=== PATIENT | female | born 2000 | race Caucasian/White ===

== ENCOUNTER 2020-06-15 17:18 | Emergency (ER) | payer OTHER ==
--- NOTE | 2020-06-15 17:36 | ERPHSYRPT ---
- History of Present Illness Time Seen by Provider: 06/15/20 17:36 Source: patient Exam Limitations: no limitations Physician History: This is a 19-year-old white female who is approximately 9 weeks who had an ultrasound approximately 2 weeks ago and was found to have a gestational sac but no obvious fetus at that point. There was a tiny area of subchorionic hemorrhage. At that point she was 6 weeks and 6 days along. Patient had hemorrhage approximately the degree of a normal menstrual period for her 2 days ago. Today, she was having significant amount of suprapubic cramping followed by a large amount of blood loss and appearance of a small fetus in blood and blood clots that she passed. Timing/Duration: today Activites at Onset: none Quality: aching Onset Location: suprapubic Severity of Pain-Max: moderate Severity of Pain-Current: moderate Sexual intercourse history: non-contributory Associated Symptoms: other (Vaginal bleeding and passage of what appears to be a fetus) Allergies/Adverse Reactions: Penicillins Allergy (Verified 06/15/20 17:37) Travel Risk - International Travel Have you traveled outside of the country in past 3 weeks: No - Coronavirus Screening Are you exhibiting any of the following symptoms?: No Close contact with a COVID-19 positive Pt in past 14-21 Days: No - Review of Systems Constitutional: No Symptoms Eyes: No Symptoms Ears, Nose, & Throat: No Symptoms Respiratory: No Symptoms Cardiac: No Symptoms Abdominal/Gastrointestinal: Abdominal Pain (Supra pubic) Genitourinary Symptoms: No Symptoms Musculoskeletal: No Symptoms Skin: No Symptoms Neurological: No Symptoms Psychological: No Symptoms Endocrine: No Symptoms Hematologic/Lymphatic: No Symptoms Immunological/Allergic: No Symptoms All Other Systems: Reviewed and Negative - Past Medical History Pertinent Past Medical History: No Neurological History: No Pertinent History ENT History: No Pertinent History Cardiac History: No Pertinent History Respiratory History: No Pertinent History Endocrine Medical History: No Pertinent History Musculoskeletal History: No Pertinent History GI Medical History: No Pertinent History History: No Pertinent History Psycho-Social History: No Pertinent History Female Reproductive Disorders: No Pertinent History - Past Surgical History Past Surgical History: No Neuro Surgical History: No Pertinent History Cardiac: No Pertinent History Respiratory: No Pertinent History Gastrointestinal: No Pertinent History Genitourinary: No Pertinent History Musculoskeletal: No Pertinent History Female Surgical History: No Pertinent History - Nursing Vital Signs Nursing Vital Signs: Initial Vital Signs Pulse Rate 95 H 12/11/20 17:38 Respiratory Rate 18 06/15/20 17:38 Blood Pressure 114/108 06/15/20 17:38 O2 Sat by Pulse Oximetry 98 06/15/20 17:38 Pain Scale Pain Intensity 8 - Physical Exam General Appearance: mild distress, alert, anxiety, other (Tearful) Eye Exam: PERRL/EOMI, eyes nml inspection Ears, Nose, Throat Exam: normal ENT inspection, moist mucous membranes Neck Exam: normal inspection, non-tender, supple, full range of motion Respiratory Exam: normal breath sounds, lungs clear, airway intact, No chest tenderness, No respiratory distress Cardiovascular Exam: regular rate/rhythm, normal heart sounds, normal peripheral pulses Gastrointestinal/Abdomen Exam: soft, normal bowel sounds, tenderness (Suprapubic), No guarding, No rebound Pelvic Exam: not done Rectal Exam: not done Back Exam: normal inspection, normal range of motion, No CVA tenderness, No vert ebral tenderness Extremity Exam: normal inspection, normal range of motion, pelvis stable Neurologic Exam: alert, oriented x 3, cooperative, identity access management architect II-XII nml as tested, normal mood/affect, nml cerebellar function, nml station & gait, sensation nml Skin Exam: normal color, warm, dry Lymphatic Exam: No adenopathy SpO2 Interpretation: normal O2 Delivery: Room Air - Course Nursing assessment & vital signs reviewed: Yes Ordered Tests: Active Orders 24 hr Category Date Time Status IV Insertion STAT Care 06/15/20 17:38 Active OB FOLLOW UP PER FETUS [US] Stat Exams 06/15/20 17:36 Taken CBC W DIFF Stat Lab 06/15/20 17:54 Completed CMP Stat Lab 06/15/20 17:54 Completed Medication Summary Generic Name Dose Route Start Last Admin Trade Name Freq PRN Reason Stop Dose Admin Sodium Chloride 1,000 mls @ 999 mls/hr 06/15/20 17:38 06/15/20 17:49 Sodium Chloride 0.9% 1000 Ml IV 06/15/20 18:38 999 mls/hr .Q1H1M STA Administration Discontinued Medications Generic Name Dose Route Start Last Admin Trade Name Freq PRN Reason Stop Dose Admin Hydromorphone HCl 1 mg 06/15/20 17:45 06/15/20 17:49 Hydromorphone 1 Mg/Ml Injection IV 06/15/20 17:46 1 mg STAT ONE Administration Hydromorphone HCl Confirm 06/15/20 17:47 Hydromorphone 1 Mg/Ml Injection Administered 06/15/20 17:48 Dose 1 mg .ROUTE .STK-MED ONE Sodium Chloride Confirm 06/15/20 17:47 Sodium Chloride 0.9% 1000 Ml Administered 06/15/20 17:48 Dose 1,000 mls @ ud .ROUTE .STK-MED ONE Ondansetron HCl 4 mg 06/15/20 17:45 06/15/20 17:49 Zofran 4 Mg/2 Ml Vial IV 06/15/20 17:46 4 mg STAT ONE Administration Ondansetron HCl Confirm 06/15/20 17:47 Zofran 4 Mg/2 Ml Vial Administered 06/15/20 17:48 Dose 4 mg .ROUTE .STK-MED ONE Lab/Rad Data: Laboratory Result Diagrams 06/15/20 17:54 06/15/20 17:54 Laboratory Results 06/15/20 06/15/20 Range/Units 17:54 17:54 WBC 13.5 H (4.0-10.5) K/mm3 RBC 4.52 (4.1-5.4) M/mm3 Hgb 13.0 (12.0-16.0) gm/dl Hct 39.6 (35-47) % MCV 87.6 (78-100) fl MCH 28.8 (26-32) pg MCHC 32.8 (32-36) g/dl RDW 13.4 (11.5-14.0) % Plt Count 211 (150-450) K/mm3 MPV 12.2 H (7.5-11.0) fl Gran % 57.8 (36.0-66.0) % Eos # (Auto) 0.52 H (0-0.5) Absolute Lymphs (auto) 4.18 (1.0-4.6) Absolute Monos (auto) 0.98 (0.0-1.3) Lymphocytes % 30.9 (24.0-44.0) % Monocytes % 7.2 (0.0-12.0) % Eosinophils % 3.8 (0.00-5.0) % Basophils % 0.3 (0.0-0.4) % Absolute Granulocytes 7.82 H (1.4-6.9) Basophils # 0.04 (0-0.4) Sodium 137 (137-145) mmol/L Potassium 4.3 (3.5-5.1) mmol/L Chloride 105 (98-107) mmol/L Carbon Dioxide 26 (22-30) mmol/L Anion Gap 10.8 (5-15) MEQ/L BUN 12 (7-17) mg/dL Creatinine 0.70 (0.52-1.04) mg/dL Estimated GFR > 60.0 ML/MIN Glucose 99 (74-106) mg/dL Calcium 9.3 (8.4-10.2) mg/dL Total Bilirubin 1.10 (0.2-1.3) mg/dL AST 25 (14-36) U/L ALT 22 (0-35) U/L Alkaline Phosphatase 50 (38-126) U/L Serum Total Protein 7.1 (6.3-8.2) g/dL Albumin 4.3 (3.5-5.0) g/dL - Progress Progress: improved, re-examined Air Movement: good Progress Note: 06/15/20 18:24 entry level lab technician stated that there is no fetus and no gestational sac present. There is a mild amount of retained debris. Blood Culture(s) Obtained: No Antibiotics given: No Counseled pt/family regarding: lab results, diagnosis, need for follow-up, rad results - Departure Departure Disposition: Home Clinical Impression: Spontaneous miscarriage Condition: Stable Critical Care Time: No Referrals: DAQUAN CASTILLO MD [Primary Care Provider] - Additional Instructions: Drink plenty fluids. Take medication as prescribed. Follow-up with Dr. Chamberlain on Thursday. Call for an appointment. If symptoms worsen over the weekend return to the emergency department. Prescriptions: Hydrocodone/APAP 5-325 Tab^^^ [[place] 5-325 Tablet^^^] 1 tab PO Q6HPRN PRN #10 tablet MDD 6 PRN Reason: Pain Ondansetron ODT 4 MG [Zofran Odt 4 mg] 4 mg PO Q6H PRN PRN #10 tab.rapdis PRN Reason: Vomiting
[2020-06-15] MEDS ORDERED: Sodium Chloride 0.9% 1000 ML 1,000 ML IV STA (17:38)
[2020-06-15] MEDS ORDERED: Hydromorphone 1 mg/ml Injection IV ONE ×2 (17:45→18:34)
[2020-06-15] MEDS ORDERED: Zofran 4 MG/2 ML VIAL IV ONE (17:45)
[2020-06-15] MEDS ORDERED: Zofran 4 MG/2 ML VIAL ONE (17:47)
[2020-06-15] MEDS ORDERED: Sodium Chloride 0.9% 1000 ML 1,000 ML ONE (17:47)
[2020-06-15] MEDS ORDERED: Hydromorphone 1 mg/ml Injection ONE ×2 (17:47→18:50)
[2020-06-15 17:48] VITALS: O2SAT 98
[2020-06-15 17:57] LABS: Absolute Neutrophil Ct (ANC) 7.82 (1.4-6.9); BASOPHIL % 0.3 % (0.0-0.4); Basophil (Absolute #) 0.04 (0-0.4); Eosinophil % 3.8 % (0.00-5.0); Eosinophil (Absolute #) 0.52 (0-0.5); Hematocrit 39.6 % (35-47); Lymphocyte (Absolute #) 4.18 (1.0-4.6); Lymphocytes % 30.9 % (24.0-44.0); Mean Cell Volume 87.6 fl (78-100); Mean Corpuscular Hemoglobin 28.8 pg (26-32); Mean Corpuscular Hgb Concent. 32.8 g/dl (32-36); Mean Platelet Volume 12.2 fl (7.5-11.0); Monocyte (Absolute #) 0.98 (0.0-1.3); Monocytes % 7.2 % (0.0-12.0); Neutrophil % 57.8 % (36.0-66.0); Platelet Count 211 K/mm3 (150-450); Red Blood Count 4.52 M/mm3 (4.1-5.4); Red Cell Distribution Width 13.4 % (11.5-14.0); White Blood Count 13.5 K/mm3 (4.0-10.5)
[2020-06-15 18:09] LABS: ALBUMIN 4.3 g/dL (3.5-5.0); ALKALINE PHOSPHATASE 50 U/L (38-126); ANION GAP 10.8 MEQ/L (5-15); BLOOD UREA NITROGEN 12 mg/dL (7-17); CHLORIDE 105 mmol/L (98-107); Calcium 9.3 mg/dL (8.4-10.2); Carbon Dioxide 26 mmol/L (22-30); EST GLOMERULAR FILTRATION RATE > 60.0 ML/MIN; Glucose 99 mg/dL (74-106); Potassium 4.3 mmol/L (3.5-5.1); SGOT/AST 25 U/L (14-36); SGPT/ALT 22 U/L (0-35); SODIUM 137 mmol/L (137-145); Total Protein 7.1 g/dL (6.3-8.2)
[2020-06-15] MEDS ORDERED: NORCO 5/325 MG PO ONE (18:34)
[2020-06-15] MEDS ORDERED: ZOFRAN ODT 4 MG PO ONE (18:35)
[2020-06-15] MEDS ORDERED: NORCO 5/325 MG ONE (18:47)
[2020-06-15] MEDS ORDERED: ZOFRAN ODT 4 MG ONE (18:50)
[2020-06-15] MEDS ORDERED: Hydromorphone 1 mg/ml Injection IM ONE (18:58)
[2020-06-15 19:21] VITALS: BP 110/62; PULSE 78
--- NOTE | 2020-06-15 21:13 | XRAY ---
Indication: Bleeding. Spontaneous . Two-dimensional transabdominal OB ultrasound performed. Comparison: June 01, 2020. No intrauterine gestational sac, pole, retained products of conception, or fluid consistent with complete . Both ovaries are sonographically unremarkable. No suspicious adnexal mass or free fluid. Impression: New findings favoring complete . Comment: Preliminary report was given.
== END 2020-06-15 19:23 | disposition home or self-care (01) ==
LOC: ED 17:18
DX: O03.4 Incomplete spontaneous abortion without complication (principal); Z3A.09 9 weeks gestation of pregnancy
CPT/HCPCS: 36000; 36415; 76816; 80053; 85025; 96360; 96372; 96374; 96375; 99284; J1170; J2405; Q0162; A9270-GY

== ENCOUNTER 2020-08-14 07:43 | Day surgery (SDC) | payer OTHER ==
[~2020-08-14 07:43] MED LIST: Lactated Ringers 1,000 ML IV ONE; Lactated Ringers 1,000 ML IV SCH; VIBRAMYCIN 100 MG*** 100 MG in Sodium Chloride 100ML MINI-BAG PLUS 100 ML IV SCH
[2020-08-14 08:10] VITALS: O2SAT 98
[2020-08-14] MEDS ORDERED: Versed 2 MG/2 ML Injection ONE (08:20)
[2020-08-14] MEDS: Versed 2 MG/2 ML Injection IV ONE ×2 (08:26→08:39)
[2020-08-14] MEDS ORDERED: DIPRIVAN 200 MG/20 ML IV ONE (08:46)
[2020-08-14] MEDS ORDERED: Xylocaine-Mpf 2% 5 Ml Vial ONE (08:46)
[2020-08-14] MEDS ORDERED: SUBLIMAZE 100 MCG/2 ML ONE ×2 (08:46→09:28)
[2020-08-14] MEDS ORDERED: Decadron 4 MG INJ ONE (08:46)
[2020-08-14] MEDS ORDERED: Zofran 4 MG/2 ML VIAL ONE (08:46)
[2020-08-14] MEDS ORDERED: TRANEXAMIC ACID 1000 MG/10 ML 1,000 MG in Sodium Chloride 0.9% 100 ML IVPB 100 ML IV ONE (09:15)
[2020-08-14] MEDS ORDERED: Lactated Ringers 1,000 ML IV ONE (09:26)
[2020-08-14] MEDS ORDERED: Hydromorphone 1 mg/ml Injection ONE (09:28)
[2020-08-14 10:55] VITALS: BP 137/60; PULSE 58
--- NOTE | 2020-08-15 07:57 | OP ---
SURGERY DATE/TIME: 08/14/2020 0846 PREOPERATIVE DIAGNOSIS: Retained tissue. POSTOPERATIVE DIAGNOSIS: Retained tissue. PROCEDURE: Suction with dilatation and curettage. SURGEON: Aaron Henson D.O. DESILVERIZER: Karlene Portillo surgical assist. ANESTHESIA: General. ESTIMATED BLOOD LOSS: Minimal. COMPLICATIONS: None. INDICATIONS: The risks, benefits, indications and alternatives of the procedure were reviewed with the patient prior to procedure. The patient understood the risk of infection, bleeding, bowel injury, bladder injury, ureteral injury, uterine perforation and pelvic infection associated with the surgery however desires to have this procedure as a possible means to alleviate her current medical condition. DESCRIPTION OF PROCEDURE AND FINDINGS: At this point the patient is taken to the operating room, given general sedation, placed in the dorsal lithotomy position. Prepped and draped in the usual sterile fashion. A weighted speculum is then placed in the patient's vagina and the anterior lip of the cervix is grasped with a single tooth tenaculum. Endocervical dilators were advanced through the endocervical canal as a means to dilate the cervix and at this point a #7 curved suction Vacurette was then placed into the fundus of the uterus where the machine was turned on for suctioning and at this point after complete suctioning hemostasis was obtained. The suction curette was removed and the surgical curette was then placed into the fundus of the uterus and an additional curettage was performed in all quadrants of the uterus where at this point minimal tissue was retrieved. From this point hemostasis was obtained. From this point all instruments were then removed from the patient's vaginal region. The patient was then taken out of the dorsal lithotomy position and was then taken to the recovery room in stable condition.
== END 2020-08-14 11:11 | disposition home or self-care (01) ==
LOC: SDC 07:43
PROVIDERS: ATTEND Obstetrics & Gynecology
DX: O03.4 Incomplete spontaneous abortion without complication (principal)
CPT/HCPCS: 84703; J1100; J1170; J2250; J2405; J2704; J3010

== ENCOUNTER 2021-02-22 15:28 | Emergency (ER) | payer OTHER ==
--- NOTE | 2021-02-22 15:35 | ERPHSYRPT ---
- History of Present Illness Time Seen by Provider: 02/22/21 15:35 Source: patient Exam Limitations: no limitations Physician History: This is a 20-year-old overweight white female who is approximately 6 weeks and has not seen an OB yet for this . She is scheduled to see Dr. Henson in his office on 02/25/2021. This morning, the patient noticed some na usea and vomiting. She has not had any diarrhea. She is having some lower abdominal cramping but no vaginal bleeding. She has had a miscarriage in the past. She does not have chest pain or shortness of breath. She has not had any fevers. Timing/Duration: today Activites at Onset: none Quality: cramping Onset Location: abdominal pain (Lower, suprapubic) Pain Radiation: suprapubic Severity of Pain-Max: mild Severity of Pain-Current: mild Sexual intercourse history: non-contributory Modifying Factors: Improves With: vomiting Associated Symptoms: abdominal pain (Mild suprapubic), nausea, vomiting, Allergies/Adverse Reactions: Penicillins Allergy (Verified 08/14/20 07:54) Hives Home Medications: Melatonin 10 mg PO QHS 08/09/20 [History] Vits W-Ca,Fe,FA(<1Mg) [] 1 each PO DAILY 08/09/20 [History] Sertraline HCl [Zoloft] 25 mg PO DAILY 08/09/20 [History] Hx Influenza Vaccination/Date Given: No Hx Pneumococcal Vaccination/Date Given: No Travel Risk - International Travel Have you traveled outside of the country in past 3 weeks: No - Coronavirus Screening Are you exhibiting any of the following symptoms?: No Close contact with a COVID-19 positive Pt in past 14-21 Days: No - Review of Systems Constitutional: No Symptoms Eyes: No Symptoms Ears, Nose, & Throat: No Symptoms Respiratory: No Symptoms Cardiac: No Symptoms Abdominal/Gastrointestinal: Abdominal Pain (Mild suprapubic), Nausea, Vomiting Genitourinary Symptoms: No Symptoms Musculoskeletal: No Symptoms Skin: No Symptoms Neurological: No Symptoms Psychological: No Symptoms Endocrine: No Symptoms Hematologic/Lymphatic: No Symptoms Immunological/Allergic: No Symptoms All Other Systems: Reviewed and Negative - Past Medical History Pertinent Past Medical History: No Neurological History: No Pertinent History ENT History: No Pertinent History Cardiac History: No Pertinent History Respiratory History: No Pertinent History Endocrine Medical History: Hypoglycemia Musculoskeletal History: No Pertinent History GI Medical History: GERD History: No Pertinent History Psycho-Social History: Anxiety Female Reproductive Disorders: No Pertinent History - Past Surgical History Past Surgical History: No Neuro Surgical History: No Pertinent History Cardiac: No Pertinent History Respiratory: No Pertinent History Gastrointestinal: No Pertinent History Genitourinary: No Pertinent History Musculoskeletal: No Pertinent History Female Surgical History: No Pertinent History Other Surgical History: asif tubes in ears , states had anesthesia for dental ,wisdom teeth removal - Social History Smoking Status: Never smoker Exposure to second hand smoke: No Drug Use: none Patient Lives Alone: No - Nursing Vital Signs Nursing Vital Signs: Initial Vital Signs Temperature 97.0 F 02/22/21 15:33 Pulse Rate 98 H 02/22/21 15:33 Respiratory Rate 18 02/22/21 15:33 Blood Pressure 143/83 02/22/21 15:33 O2 Sat by Pulse Oximetry 96 02/22/21 15:33 Pain Scale Pain Intensity 5 - Physical Exam General Appearance: no apparent distress, alert, anxiety Eye Exam: PERRL/EOMI, eyes nml inspection Ears, Nose, Throat Exam: normal ENT inspection, moist mucous membranes Neck Exam: normal inspection, non-tender, supple, full range of motion Respiratory Exam: normal breath sounds, lungs clear, airway intact, No chest tenderness, No respiratory distress Cardiovascular Exam: regular rate/rhythm, normal heart sounds, normal peripheral pulses Gastrointestinal/Abdomen Exam: soft, normal bowel sounds, tenderness (Mild suprapubic. No guarding no rebound), No guarding, No rebound Pelvic Exam: not done Rectal Exam: not done Back Exam: normal inspection, normal range of motion, No CVA tenderness, No vertebral tenderness Extremity Exam: normal inspection, normal range of motion, pelvis stable Neurologic Exam: alert, oriented x 3, cooperative, massotherapist II-XII nml as tested, normal mood/affect, nml cerebellar function, nml station & gait, sensation nml Skin Exam: normal color, warm, dry Lymphatic Exam: No adenopathy SpO2 Interpretation: normal O2 Delivery: Room Air - Course Nursing assessment & vital signs reviewed: Yes Ordered Tests: Active Orders 24 hr Category Date Time Status IV Insertion STAT Care 02/22/21 15:42 Active CBC W DIFF Stat Lab 02/22/21 15:50 Completed CMP Stat Lab 02/22/21 15:50 Completed CULTURE,URINE Stat Lab 02/22/21 15:44 Received HCG, Quantitative (Inhouse) Stat Lab 02/22/21 15:50 Completed UA W/RFX UR CULTURE Stat Lab 02/22/21 15:44 Completed Medication Summary Generic Name Dose Route Start Last Admin Trade Name Basil PRN Reason Stop Dose Admin Sodium Chloride 1,000 mls @ 999 mls/hr 02/22/21 16:52 Sodium Chloride 0.9% 1000 Ml IV 02/22/21 17:52 .Q1H1M STA Ceftriaxone Sodium/Dextrose 1 g in 50 mls @ 100 mls/hr 02/22/21 16:58 Rocephin 1 Gm-D5w 50 Ml Bag IV 02/22/21 17:27 STAT STA Discontinued Medications Generic Name Dose Route Start Last Admin Trade Name Basil PRN Reason Stop Dose Admin Sodium Chloride 1,000 mls @ 999 mls/hr 02/22/21 15:42 02/22/21 16:15 Sodium Chloride 0.9% 1000 Ml IV 02/22/21 16:42 999 mls/hr .Q1H1M STA Administration Sodium Chloride Confirm 02/22/21 16:12 Sodium Chloride 0.9% 1000 Ml Administered 02/22/21 16:13 Dose 1,000 mls @ ud .ROUTE .STK-MED ONE Ondansetron HCl 4 mg 02/22/21 15:42 02/22/21 16:14 Zofran 4 Mg/2 Ml Vial IV 02/22/21 15:43 4 mg STAT ONE Administration Ondansetron HCl Confirm 02/22/21 16:12 Zofran 4 Mg/2 Ml Vial Administered 02/22/21 16:13 Dose 4 mg .ROUTE .STK-MED ONE Lab/Rad Data: Laboratory Result Diagrams 02/22/21 15:50 02/22/21 15:50 Laboratory Results 02/22/21 02/22/21 02/22/21 Range/Units 15:50 15:50 15:50 WBC 11.9 H (4.0-10.5) K/mm3 RBC 4.95 (4.1-5.4) M/mm3 Hgb 14.3 (12.0-16.0) gm/dl Hct 41.8 (35-47) % MCV 84.4 (78-100) fl MCH 28.9 (26-32) pg MCHC 34.2 (32-36) g/dl RDW 13.3 (11.5-14.0) % Plt Count 200 (150-450) K/mm3 MPV 11.6 H (7.5-11.0) fl Gran % 72.5 H (36.0-66.0) % Eos # (Auto) 0.09 (0-0.5) Absolute Lymphs (auto) 2.01 (1.0-4.6) Absolute Monos (auto) 1.12 (0.0-1.3) Lymphocytes % 17.0 L (24.0-44.0) % Monocytes % 9.5 (0.0-12.0) % Eosinophils % 0.8 (0.00-5.0) % Basophils % 0.2 (0.0-0.4) % Absolute Granulocytes 8.61 H (1.4-6.9) Basophils # 0.02 (0-0.4) Sodium 136 L (137-145) mmol/L Potassium 4.1 (3.5-5.1) mmol/L Chloride 101 (98-107) mmol/L Carbon Dioxide 22 (22-30) mmol/L Anion Gap 16.6 H (5-15) MEQ/L BUN 9 (7-17) mg/dL Creatinine 0.60 (0.52-1.04) mg/dL Estimated GFR > 60.0 ML/MIN Glucose 95 (74-106) mg/dL Calcium 9.8 (8.4-10.2) mg/dL Total Bilirubin 2.00 H (0.2-1.3) mg/dL AST 26 (14-36) U/L ALT 22 (0-35) U/L Alkaline Phosphatase 65 (38-126) U/L Serum Total Protein 7.8 (6.3-8.2) g/dL Albumin 4.8 (3.5-5.0) g/dL Beta HCG, Quant 25403 mIU/ml Urine Color (YELLOW) Urine Appearance (CLEAR) Urine pH (5-6) Ur Specific [place] (1.005-1.025) Urine Protein (Negative) Urine Ketones (NEGATIVE) Urine Blood (0-5) Nick/ul Urine Nitrite (NEGATIVE) Urine Bilirubin (NEGATIVE) Urine Urobilinogen (0-1) mg/dL Ur Leukocyte Esterase (NEGATIVE) Urine WBC (Auto) (0-5) /HPF Urine RBC (Auto) (0-2) /HPF U Epithel Cells (Auto) (FEW) /HPF Urine Bacteria (Auto) (NEGATIVE) /HPF Urine Mucus (Auto) (NEGATIVE) /HPF Urine Culture Reflexed (NO) Urine Glucose (NEGATIVE) mg/dL 02/22/21 Range/Units 15:44 WBC (4.0-10.5) K/mm3 RBC (4.1-5.4) M/mm3 Hgb (12.0-16.0) gm/dl Hct (35-47) % MCV (78-100) fl MCH (26-32) pg MCHC (32-36) g/dl RDW (11.5-14.0) % Plt Count (150-450) K/mm3 MPV (7.5-11.0) fl Gran % (36.0-66.0) % Eos # (Auto) (0-0.5) Absolute Lymphs (auto) (1.0-4.6) Absolute Monos (auto) (0.0-1.3) Lymphocytes % (24.0-44.0) % Monocytes % (0.0-12.0) % Eosinophils % (0.00-5.0) % Basophils % (0.0-0.4) % Absolute Granulocytes (1.4-6.9) Basophils # (0-0.4) Sodium (137-145) mmol/L Potassium (3.5-5.1) mmol/L Chloride (98-107) mmol/L Carbon Dioxide (22-30) mmol/L Anion Gap (5-15) MEQ/L BUN (7-17) mg/dL Creatinine (0.52-1.04) mg/dL Estimated GFR ML/MIN Glucose (74-106) mg/dL Calcium (8.4-10.2) mg/dL Total Bilirubin (0.2-1.3) mg/dL AST (14-36) U/L ALT (0-35) U/L Alkaline Phosphatase (38-126) U/L Serum Total Protein (6.3-8.2) g/dL Albumin (3.5-5.0) g/dL Beta HCG, Quant mIU/ml Urine Color YELLOW (YELLOW) Urine Appearance TURBID (CLEAR) Urine pH 5.0 (5-6) Ur Specific [place] 1.033 (1.005-1.025) Urine Protein 100 (Negative) Urine Ketones MODERATE (NEGATIVE) Urine Blood SMALL (0-5) Nick/ul Urine Nitrite NEGATIVE (NEGATIVE) Urine Bilirubin SMALL (NEGATIVE) Urine Urobilinogen 2 (0-1) mg/dL Ur Leukocyte Esterase NEGATIVE (NEGATIVE) Urine WBC (Auto) 11-15 (0-5) /HPF Urine RBC (Auto) 3-5 (0-2) /HPF U Epithel Cells (Auto) RARE (FEW) /HPF Urine Bacteria (Auto) MODERATE (NEGATIVE) /HPF Urine Mucus (Auto) MANY (NEGATIVE) /HPF Urine Culture Reflexed YES (NO) Urine Glucose NEGATIVE (NEGATIVE) mg/dL - Progress Progress: improved Air Movement: good Progress Note: 02/22/21 17:09 Patient states that she has had Keflex in the past on multiple occasions and had no problems taking this medication. Blood Culture(s) Obtained: No Antibiotics given: Yes Counseled pt/family regarding: lab results, diagnosis, need for follow-up - Departure Departure Disposition: Home Clinical Impression: Vomiting, UTI in Condition: Stable Critical Care Time: No Referrals: DOCTOR,NO FAMILY [Primary Care Provider] - Additional Instructions: Drink plenty of fluids. Take your antibiotics as prescribed. Keep your appointment with her wire saw operator on 02/25/2021. Prescriptions: Cephalexin Mh 500 mg [Keflex 500 mg] 500 mg PO TID #15 cap
[2021-02-22] MEDS ORDERED: Sodium Chloride 0.9% 1000 ML 1,000 ML IV STA ×2 (15:42→16:52)
[2021-02-22] MEDS ORDERED: Zofran 4 MG/2 ML VIAL IV ONE (15:42)
[2021-02-22 15:56] LABS: Absolute Neutrophil Ct (ANC) 8.61 (1.4-6.9); BASOPHIL % 0.2 % (0.0-0.4); Basophil (Absolute #) 0.02 (0-0.4); Eosinophil % 0.8 % (0.00-5.0); Eosinophil (Absolute #) 0.09 (0-0.5); Hematocrit 41.8 % (35-47); Hemoglobin 14.3 gm/dl (12.0-16.0); Lymphocyte (Absolute #) 2.01 (1.0-4.6); Mean Cell Volume 84.4 fl (78-100); Mean Corpuscular Hemoglobin 28.9 pg (26-32); Mean Corpuscular Hgb Concent. 34.2 g/dl (32-36); Mean Platelet Volume 11.6 fl (7.5-11.0); Monocyte (Absolute #) 1.12 (0.0-1.3); Monocytes % 9.5 % (0.0-12.0); Neutrophil % 72.5 % (36.0-66.0); Platelet Count 200 K/mm3 (150-450); Red Blood Count 4.95 M/mm3 (4.1-5.4); Red Cell Distribution Width 13.3 % (11.5-14.0); White Blood Count 11.9 K/mm3 (4.0-10.5)
[2021-02-22 15:56] LABS: Appearance TURBID (CLEAR); Bacteria MODERATE /HPF (NEGATIVE); Bilirubin SMALL (NEGATIVE); Blood SMALL Ery/ul (0-5); Epithelial Cells RARE /HPF (FEW); Glucose NEGATIVE (NEGATIVE); Ketones MODERATE (NEGATIVE); Leukocyte Esterase NEGATIVE (NEGATIVE); Mucus MANY /HPF (NEGATIVE); Nitrite NEGATIVE (NEGATIVE); Protein,Urine Dip 100 (Negative); Specific Gravity 1.033 (1.005-1.025); Urobilinogen 2 mg/dL (0-1)
[2021-02-22 16:11] LABS: ALBUMIN 4.8 g/dL (3.5-5.0); ALKALINE PHOSPHATASE 65 U/L (38-126); ANION GAP 16.6 MEQ/L (5-15); BLOOD UREA NITROGEN 9 mg/dL (7-17); CHLORIDE 101 mmol/L (98-107); Calcium 9.8 mg/dL (8.4-10.2); Carbon Dioxide 22 mmol/L (22-30); EST GLOMERULAR FILTRATION RATE > 60.0 ML/MIN; Glucose 95 mg/dL (74-106); Potassium 4.1 mmol/L (3.5-5.1); SGOT/AST 26 U/L (14-36); SGPT/ALT 22 U/L (0-35); SODIUM 136 mmol/L (137-145); Total Protein 7.8 g/dL (6.3-8.2)
[2021-02-22] MEDS ORDERED: Zofran 4 MG/2 ML VIAL ONE (16:12)
[2021-02-22] MEDS ORDERED: Sodium Chloride 0.9% 1000 ML 1,000 ML ONE ×2 (16:12→17:07)
[2021-02-22] MEDS ORDERED: ROCEPHIN 1 Gm-D5w 50 ml Bag** 1 G/50 ML IVPB IV STA (16:58)
[2021-02-22] MEDS ORDERED: ROCEPHIN 1 Gm-D5w 50 ml Bag** 1 G/50 ML IVPB IV ONE (17:07)
[2021-02-22 17:23] VITALS: BP 92/70
[2021-02-22 18:08] VITALS: PULSE 82; O2SAT 98
== END 2021-02-22 18:10 | disposition home or self-care (01) ==
LOC: ED 15:28
DX: O23.41 Unspecified infection of urinary tract in pregnancy, first trimester (principal); Z3A.01 Less than 8 weeks gestation of pregnancy; R11.2 Nausea with vomiting, unspecified
CPT/HCPCS: 36000; 36415; 80053; 81001; 84702; 85025; 87086; 96374; 99284; J0696; J2405

== ENCOUNTER 2023-11-16 09:20 | Emergency (ER) | payer BC, OTHER ==
--- NOTE | 2023-11-16 09:29 | ERPHSYRPT ---
- History of Present Illness Time Seen by Provider: 11/16/23 09:29 Source: patient, family Exam Limitations: no limitations Physician History: This is an overweight 22-year-old white female patient of nurse practitioner Jarvis who presents with lower back pain that is bilateral. It is sharp and stabbing and she feels it into her hips and buttock bilaterally when up and ambulating. Patient did not fall or suffer any type of acute traumatic injury. She does not have dysuria frequency or hematuria. She does not think she is . She is refusing x-rays but will allow us to obtain a urinalysis and test. Patient was hiking in flip-flops approximately 3 days ago. The pain worsened and it was at its worst this morning. Timing/Duration: day(s) (2), worse Method of Injury: other (No acute injury) Quality: sharp, stabbing Back Pain Location: paraspinous muscles (Lumbar spine level bilateral) Back Pain Radiation: buttocks Severity of Pain-Max: moderate Severity of Pain-Current: moderate Modifying Factors: Improves With: movement Associated Symptoms: lower back pain, muscle spasms, No urinary incontinence, No loss of bowel control, No constipation, No numbness in legs/feet Previous symptoms: no prior history, no recent treatment Allergies/Adverse Reactions: Penicillins Allergy (Unknown, Verified 10/09/21 22:47) Hives Home Medications: Phentermine HCl 1 tab PO DAILY 11/16/23 [History] Venlafaxine HCl 37.5 mg [Effexor 37.5 mg] 1 tab PO HS 11/16/23 [History] Hx Tetanus, Diphtheria Vaccination/Date Given: Yes Hx Influenza Vaccination/Date Given: No Hx Pneumococcal Vaccination/Date Given: No Travel Risk - International Travel Have you traveled outside of the country in past 3 weeks: No - Emerging Infectious Disease Are you exhibiting symptoms associated with any current EIDs: No - Review of Systems Constitutional: No Symptoms Eyes: No Symptoms Ears, Nose, & Throat: No Symptoms Respiratory: No Symptoms Cardiac: No Symptoms Abdominal/Gastrointestinal: No Symptoms Genitourinary Symptoms: No Symptoms Musculoskeletal: Back Pain Skin: No Symptoms Neurological: No Symptoms Psychological: No Symptoms Endocrine: No Symptoms Hematologic/Lymphatic: No Symptoms Immunological/Allergic: No Symptoms All Other Systems: Reviewed and Negative - Past Medical History Pertinent Past Medical History: Yes Neurological History: No Pertinent History, Migraines ENT History: No Pertinent History Cardiac History: No Pertinent History Respiratory History: No Pertinent History Endocrine Medical History: No Pertinent History Musculoskeletal History: No Pertinent History GI Medical History: No Pertinent History History: No Pertinent History Psycho-Social History: No Pertinent History Female Reproductive Disorders: No Pertinent History - Past Surgical History Past Surgical History: Yes Neuro Surgical History: No Pertinent History Cardiac: No Pertinent History Respiratory: No Pertinent History Gastrointestinal: No Pertinent History Genitourinary: No Pertinent History Musculoskeletal: No Pertinent History Female Surgical History: Dilation & Curettage Other Surgical History: asif tubes in ears , states had anesthesia for dental ,wisdom teeth removal - Social History Smoking Status: Current every day smoker Exposure to second hand smoke: No Drug Use: marijuana Patient Lives Alone: No - Nursing Vital Signs Nursing Vital Signs: Initial Vital Signs Temperature 98.2 F 11/16/23 09:46 Pulse Rate 96 H 11/16/23 09:46 Respiratory Rate 20 11/16/23 09:46 Blood Pressure 118/81 11/16/23 09:46 O2 Sat by Pulse Oximetry 100 11/16/23 09:46 Pain Scale Pain Intensity [Lower Back] 5 Pain Intensity 5 - Physical Exam General Appearance: no apparent distress, alert, anxiety, obese Eye Exam: PERRL/EOMI, eyes nml inspection Ears, Nose, Throat Exam: normal ENT inspection, moist mucous membranes Neck Exam: normal inspection, non-tender, supple, full range of motion Respiratory Exam: airway intact, No chest tenderness, No respiratory distress Cardiovascular Exam: regular rate/rhythm, normal heart sounds, normal peripheral pulses Gastrointestinal Exam: No tenderness Pelvic Exam: not done Rectal Exam: not done Back Exam: normal inspection, normal range of motion, muscle spasm (Bilateral. Lumbar spine level), No CVA tenderness, No vertebral tenderness Extremity Exam: normal inspection, normal range of motion, pelvis stable Neurologic Exam: alert, oriented x 3, cooperative, tutoring manager II-XII nml as tested, nml cerebellar function, nml station & gait, sensation nml Skin Exam: normal color, warm, dry Lymphatic Exam: No adenopathy SpO2 Interpretation: normal O2 Delivery: Room Air - Course Nursing assessment & vital signs reviewed: Yes Ordered Tests: Active Orders 24 hr Category Date Time Status CULTURE,URINE Stat Lab 11/16/23 Received HCG QUALITATIVE, URINE Stat Lab 11/16/23 Completed UA W/RFX UR CULTURE Stat Lab 11/16/23 Completed Lab/Rad Data: Laboratory Results 11/16/23 11/16/23 Range/Units Unknown Unknown Urine Color Yellow (Yellow) Urine Appearance Clear (Clear) Urine pH 6.5 (4.6-8.0) Ur Specific [place] 1.020 (1.005-1.030) Urine Protein Negative (Negative) Urine Glucose (UA) Negative (Negative) mg/dL Urine Ketones Negative (Negative) Urine Blood Negative (Negative) Urine Nitrite Negative (Negative) Urine Bilirubin Negative (Negative) Urine Urobilinogen 0.2 (0.2) mg/dL Ur Leukocyte Esterase Small A (Negative) U Hyaline Cast (Auto) NONE SEEN (0-2) /LPF Urine Microscopic RBC 0-2 (0-5) /HPF Urine Microscopic WBC 3-5 (0-5) /HPF Ur Epithelial Cells Rare (None Seen) /HPF Urine Bacteria Rare A (None Seen) /HPF Urine Culture Reflexed YES (NO) Urine HCG, Qual NEGATIVE (NEGATIVE) - Progress Progress: improved, pain not gone completely, re-examined Progress Note: 11/16/23 10:04 My medical decision making and the assignment of low complexity to this patient's medical issue today is based on review of the patient's past medical history, review patient's medication list, review patient drug allergy list, history present illness and physical findings on examination. The workup in this patient is also based on the patient's desire to have a urine test and urinalysis performed. She also does not desire to have any radiographic studies. Therefore, the workup will include urinalysis and urine test. Differential diagnosis includes urinary tract infection, muscle skeletal pain, sciatica 11/16/23 10:23 I interpreted the laboratory data results. The patient's test is n egative. I am not convinced that the patient has a urinary tract infection. She has a small amount of leukocyte Estrace. We will wait for the culture and contact her if the culture is positive and requires antibiotic treatment. It may not. Counseled pt/family regarding: lab results, diagnosis Medical Desision Making - Independent Historian Additional History obtained from: Spouse - Diagnostic Testing Diagnostic test were ordered, analyzed, and reviewed by me: Yes - Risk of complications The pt has a mod risk of morbidity or mortality based on: Need for prescription drug management - Departure Departure Disposition: Home Clinical Impression: Back pain Condition: Stable Critical Care Time: No Referrals: BEVERLY CRUZ NP [Primary Care Provider] - Follow up/PCP as directed Additional Instructions: Drink plenty fluids. Take your medication as prescribed. Call your primary care provider today, 11/16/2023, to make arrangements for a follow-up appointment to be seen in the next 5 to 7 days. Prescriptions: Prednisone 10 mg [Deltasone 10 mg] 10 mg PO TID #12 tablet Orphenadrine Citrate 100 mg [Norflex 100 MG Tablet] 100 mg PO BID #10 tab
[2023-11-16 09:50] VITALS: RESP 20; TEMP 98.2
[2023-11-16 10:07] LABS: HCG URINE TEST NEGATIVE (NEGATIVE)
[2023-11-16 10:12] LABS: ADD URINE CULTURE? YES (NO); Appearance Clear (Clear); Bacteria Rare /HPF (None Seen); Bilirubin Negative (Negative); Blood Negative (Negative); Epithelial Cells Rare /HPF (None Seen); Glucose, Urine Negative (Negative); Hyaline Casts NONE SEEN /LPF (0-2); Ketones Negative (Negative); Leukocyte Esterase Small (Negative); Nitrite Negative (Negative); Ph 6.5 (4.6-8.0); Protein,Urine Dip Negative (Negative); RBC 0-2 /HPF (0-5); Urobilinogen 0.2 mg/dL (0.2)
[2023-11-16] MEDS ORDERED: solu-MEDROL ONE (10:48)
[2023-11-16] MEDS ORDERED: Norflex 100 MG Tablet PO ONE (10:48)
[2023-11-16] MEDS ORDERED: PERCOCET TABLET 5/325MG ONE (10:48)
[2023-11-16] MEDS ORDERED: Sterile H2O 10 ml IJ ONE (10:48)
[2023-11-16] MEDS: solu-MEDROL 125 MG, Sterile H2O 10 ml 2 ML IM ONE (10:50)
[2023-11-16] MEDS: Norflex 100 MG Tablet PO ONE (10:51)
[2023-11-16] MEDS: PERCOCET TABLET 5/325MG PO STA (10:51)
[2023-11-16 11:15] VITALS: BP 135/77; PULSE 68; O2SAT 98
== END 2023-11-16 11:16 | disposition home or self-care (01) ==
LOC: ED 09:20
DX: M54.50 Low back pain, unspecified (principal); Z79.52 Long term (current) use of systemic steroids; Z79.899 Other long term (current) drug therapy; Z72.0 Tobacco use
CPT/HCPCS: 81001; 81025; 87086; 96372; 99283; J2919; A9270-GY